=== PATIENT | male | born 1940 | race Caucasian/White ===

== ENCOUNTER 2020-06-20 07:30 | Inpatient (IN) | payer MEDICARE ==
[~2020-06-20] VITALS: Ht 177.8 cm; Wt 63.6 kg
[2020-06-20 08:58] LABS: HEMATOCRIT 46.4 % (42.0-54.0); HEMOGLOBIN 15.8 g/dL (13.5-17.5); MCH 30.6 pg (26.0-34.0); MCHC 34.1 g/dL (31.0-37.0); MCV 89.9 fL (80.0-100.0); MEAN PLATELET VOLUME 9.2 fL (7.4-10.4); RBC 5.16 10x6/uL (4.20-6.10); RDW 13.2 % (11.5-14.5)
[2020-06-20 09:07] LABS: APTT 30.1 SECONDS (22.8-39.4); INR 0.94 (0.85-1.17); PROTIME 12.5 SECONDS (11.6-15.0)
[2020-06-20 09:11] LABS: BILIRUBIN - TOTAL 0.27 mg/dL (0.2-1.3); POTASSIUM - SERUM 4.1 mmol/L (3.5-5.1); PROTEIN - SERUM 8.3 g/dL (6.4-8.2)
[2020-06-20] MEDS ORDERED: BAYER CHEWABLE81 MG PO (09:15)
[2020-06-20] MEDS ORDERED: NORVASC5 MG PO (09:16)
[2020-06-20 09:25] LABS: ALKALINE PHOSPHATASE 107 U/L (30-120); ALT (SGPT) 21 U/L (10-68); CALC OSMOLALITY 277 mosm/kg (275-300); CARBON DIOXIDE 28.8 mmol/L (21.0-32.0); CHLORIDE - SERUM 99 mmol/L (98-107); CREATININE - SERUM 0.9 mg/dL (0.6-1.3); GLUCOSE 125 mg/dL (74-106); SODIUM 136 mmol/L (136-145); UREA NITROGEN 27 mg/dL (7-18); eGFR NON AFRICAN AMERICAN 86 mL/min (90-120)
[2020-06-20 12:28] LABS: BILIRUBIN NEGATIVE (NEGATIVE); GLUCOSE NEGATIVE (NEGATIVE); KETONE NEGATIVE (NEGATIVE); NITRITE NEGATIVE (NEGATIVE); UROBILINOGEN NORMAL (NORMAL)
--- NOTE | 2020-06-24 10:52 | NUR ---
PT DECIDED TO LEAVE BECAUSE PROCEDURE WAS GOING TO BE LATER THIS AFTERNOON. PT RESCHEDULED FOR TOMMOROW. PT INSTRUCTED ON INSTRUCTIONS FOR SURGERY TOMMOROW. PT VERBALIZED UNDERSTANDING AND SENT HOME WITH DC INSTRUCTIONS. PT LEAVING OPS AT THIS TIME, AMBULATORY, NO DISTRESS NOTED.
[2020-06-25] VITALS (24 sets, daily range): BP systolic 96–203; BP diastolic 40–89; Ht 177.8 cm; Wt 63.6 kg
--- NOTE | 2020-06-25 17:45 | NUR ---
RECEIVED VIA BED FROM OR. RESTLESS AND AGITATED. PULLING AT HERNANDES CATHETER AND CENTRAL LINE. SOFT LIMB HOLDERS APPLIED UNTIL MORE ALERT. 02 VIA SIMPLE MASK AT 4L/M. LUNGS CLEAR. DIRECTOR OF PUBLIC SAFETY SINUS RHYTHM. CVP AND FLUIDS TO LEFT SUBCLAVIAN DUAL LUMEN CATHETER. IV FLUIDS/MEDS INFUSING. CLEVIPREX INITIATED FOR ELEVATED BP OF 168/73. TITRATED TO KEEP BP 140 SYSTOLIC. RIGHT CAROTID INCISION DRESSING INTACT. DOUG DRAIN COMPRESSED. RIGHT RADIAL ARTERIAL LINE CORRELATES WITH NIBP. HERNANDES CATHETER TO CLOSED SYSTEM DRAINAGE BAG, URINE CLEAR. SCDS AND MATT HOSE ON.
--- NOTE | 2020-06-25 18:30 | NUR ---
CLEVIPREX TITRATED OFF. BP 99/41. NTG DECREASED TO 8ML/HR.
--- NOTE | 2020-06-25 18:35 | NUR ---
C/O NAUSEA. ZOFRAN 4MG IVP GIVEN. NAUSEA RELIEVED.
--- NOTE | 2020-06-25 18:55 | NUR ---
NITRO DRIP TITRATED OFF. BP 115/44 VIA ART LINE. C/O DRY MOUTH, ASKING REPEATEDLY FOR WATER. GLYCERINE SWABS FOR COMFORT.
--- NOTE | 2020-06-25 19:20 | NUR ---
REPORT TO ON-COMING NURSE.
[2020-06-26] VITALS (56 sets, daily range): BP systolic 105–159; BP diastolic 44–99
--- NOTE | 2020-06-26 07:43 | OP ---
PATIENT NAME: REMA FUENTES JR MEDICAL RECORD: [id number] :40 [facility] AD[facility]ION DATE:06/25/20 SURGEON: TYLER NICHOLS MD DATE OF OPERATION: 06/25/2020 SURGEON: Tyler Nichols MD PROCEDURE PERFORMED: Right carotid endarterectomy. PREOPERATIVE DIAGNOSIS: Carotid stenosis. POSTOPERATIVE DIAGNOSIS: Carotid stenosis. ANESTHESIA: General endotracheal anesthesia. SPECIMENS: Plaque. CONDITION: Stable. DISPOSITION: CVICU. OPERATIVE FINDINGS: 1. Irregular plaque with some liquid-like plaque and the plaque feathered well distally, was tacked, and a CorMatrix patch was used for closure. 2. Neurologically intact to CVICU. INDICATION: Carotid stenosis, history of left hemispheric TIA. PROCEDURE IN DETAIL: The patient was brought to the operating suite. General anesthesia was obtained. The patient was prepped and draped. An oblique incision was made in the neck, taken down through the subcutaneous tissue. Facial venous branches were divided. Common carotid was encircled. External carotid and thyroid branch were encircled. Internal carotid was dissected out distally. Heparin was given. After heparin was circulated, backbleeding was controlled with a bulldog clamp and flow with a vascular clamp and backbleeding of the external carotid and thyroid branch with vessel loops. EEG and cerebral oximetry remained normal and after 2 minutes, arteriotomy was made, taken out through the region of dense and liquid calcification and plaque and into a relatively normal region of the internal carotid. The endarterectomy was begun by dividing the plaque in the common carotid with eversion endarterectomy of the external carotid and the plaque feathered well distally. Thorough irrigation was undertaken. All bits of loose debris were removed. The plaque was tacked distally. The patch was fashioned to the appropriate size and sutured along the edge of the arteriotomy. Prior to completing the anastomosis, backbleeding was allowed from all 3 major vessels. Thorough irrigation of the endarterectomy bed was performed and the anastomosis was completed. Flow restored first to the external carotid and then to the internal carotid. Interrupted patch sutures were used for hemostasis. A drain was placed through a separate stab wound. Thorough antibiotic irrigation was performed. A 3-layer neck closure was performed. Dermabond on the skin. Needle and sponge counts were correct. The patient was taken to ICU in stable condition. NTS:[id number] Voice Confirmation ID: [id number] DOCUMENT ID: [id number] OPERATIVE REPORT [id number] REMA FUENTES JR, DANIEL W MD at 0743 CC: GT GUTIERREZ [id number] DICTATION DATE: 06/25/20 174 RELATIONSHIP SPECIALIST: 06/26/20 0107 ADM IN [facility] [address] [place] [address]
--- NOTE | 2020-06-26 07:50 | NUR ---
DR. NICHOLS HERE. INSTRUCTED TO TITRATE CLEVIPREX AND NITROGLYCERINE DOWN ACCORDING TO CUFF BP.
--- NOTE | 2020-06-26 09:30 | NUR ---
C/O NAUSEA. ZOFRAN 4MG IVP GIVEN.
--- NOTE | 2020-06-26 10:10 | NUR ---
PATEINT STATES NAUSEA RELIEVED. CHAIR RECLINED FOR NAP.
--- NOTE | 2020-06-26 11:30 | NUR ---
PATIENT REMAINS UP IN CHAIR FOR LUNCH TRAY.
--- NOTE | 2020-06-26 13:00 | NUR ---
CHG BATH GIVEN. ASSISTED BACK TO BED. HOB AT 30 DEGREES.
--- NOTE | 2020-06-26 14:10 | NUR ---
DOUG DRAIN REMOVED FROM RIGHT NECK BY DR. NICHOLS. OCCLUSIVE DRESSING APPLIED. CVP MONITORING DISCONTINUED.
--- NOTE | 2020-06-26 15:10 | NUR ---
PATIENT IS SLEEPING AT THIS TIME. VITAL SIGNS ARE STABLE.
--- NOTE | 2020-06-26 17:00 | NUR ---
ARTERIAL CATHETER D/C'D FROM RIGHT RADIAL ARTERY. PRESSURE HELD AND OCCLUSIVE DRESSING APPLIED. HERNANDES CATHETER REMOVED AND URINAL PROVIDED. ASSISTED TO BEDSIDE CHAIR FOR SUPPER. SINUS RHYTHM.
[2020-06-26] MEDS ORDERED: LOPRESSOR25 MG PO (17:48)
[2020-06-27] VITALS (10 sets, daily range): BP systolic 118–145; BP diastolic 41–63
--- NOTE | 2020-06-27 10:26 | NUR ---
PT TAWANDA TOLENTINO ORDERED. HR 60'S TELEMETRY. STEADY GAIT. PT JOSE ANTONIO WELL.
--- NOTE | 2020-06-27 14:11 | MORECARE ---
CASE MANAGEMENT DISCHARGE SUMMARY PATIENT: REMA FUENTES UNIT: [id number] ADM DATE: 06/25/20 AGE: 80 : 40 SEX: M ROOM/BED: D[facility] AUTHOR: XOCHITL,DARIUSZ PHYSICIAN: REFERRING PHYSICIAN: SAPNA NICHOLS MD DATE OF SERVICE: 06/27/20 Discharge Plan Patient Name: REMA [facility]UENTES [facility] [facility] 1940 Planned Disposition: Home Anticipated Discharge Date: Discharge Date: 06/27/2020 Expected LOS: Initial Reviewer: [email or web address] Initial Review Date: 06/27/2020 Generated: 06/27/20 3:10 pm Comments DCP- Discharge Planning Updated by [email or web address]: Kylee Cheatham on 06/27/20 1:[address] Patient Name: REMA FUENTES Admission Status: Elective Accout number: [id number] Admission Date: 06-25-2020 : 1940 Admission Diagnosis:OCCLUSION AND STENOSIS OF RIGHT CAROTID ARTERY Attending: SAPNA NICHOLS Current LOS: 2 Anticipated DC Date: Planned Disposition: Home Primary Insurance: MEDICARE A & B Discharge Planning Comments: CM met with patient to complete initial dc planning assessment. CM educated patient on the CM role and verbal consent given by patient to complete assessment. Patient lives at home alone. Patient states that he has arranged for someone to come and check on him for the next week or so. Patient is independent. At discharge patient plans to return home and feels this is a safe discharge. CM discussed availability of home health, rehab services, and medical equipment. Patient will have family to transport home. Ty [phone] home and will be the person who will be checking on patient and assisting as needed. Patient denied known discharge needs at this time. CM will continue to follow and will assist as needed with dc plans/needs. Executive Associate: Kylee Cheatham DCPIA - Discharge Planning Initial Assessment Updated by [email or web address]: Kylee Cheatham on 06/27/20 2:07 pm * Is the patient Alert and Oriented? Yes * How many steps to enter\exit or inside your home? * PCP NO PCP * Pharmacy [facility] * Preadmission Environment Home Alone * ADLs Independent * Equipment None * List name and contact numbers for known caregivers / representatives who currently or will assist patient after discharge: TAMAR CRUZ - [phone] TY (TRANSPORTATION / CAREGIVER) [phone] * Verbal permission to speak to the caregivers and representatives has been obtained from the patient. No * Community resources currently utilized None * Additional services required to return to the preadmission environment? No * Can the patient safely return to the preadmission environment? Yes * Has this patient been hospitalized within the prior 30 days at any hospital? No Patient Name: REMA FUENTES Page 13848 at 1411 All edits/amendments must be made on the electronic document DICTATION DATE: 06/27/201409 ASSOCIATE PROFESSOR OF ART: UMER 06/27/201409 RPT#: [id number] DC DATE:06/27/20 STATUS: DIS IN [facility] [address] [place] [address] END OF REPORT
--- NOTE | 2020-06-27 14:18 | MORECARE ---
CASE MANAGEMENT DISCHARGE SUMMARY PATIENT: REMA FUENTES UNIT: [id number] ADM DATE: 06/25/20 AGE: 80 : 40 SEX: M ROOM/BED: D.[facility] AUTHOR: XOCHITL,DARIUSZ PHYSICIAN: REFERRING PHYSICIAN: SAPNA NICHOLS MD DATE OF SERVICE: 06/27/20 Discharge Plan Patient Name: REMA FUENTES [facility] [facility] 1940 Planned Disposition: Home Anticipated Discharge Date: Discharge Date: 06/27/2020 Expected LOS: Initial Reviewer: [email or web address] Initial Review Date: 06/27/2020 Generated: 06/27/20 3:18 pm Comments DCP- Discharge Planning Updated by [email or web address]: Kylee Cheatham on 06/27/20 1:[address] Patient Name: REMA FUENTES Admission Status: Elective Accout number: [id number] Admission Date: 06-25-2020 : 1940 Admission Diagnosis:OCCLUSION AND STENOSIS OF RIGHT CAROTID ARTERY Attending: SAPNA NICHOLS Current LOS: 2 Anticipated DC Date: Planned Disposition: Home Primary Insurance: MEDICARE A & B Discharge Planning Comments: CM met with patient to complete initial dc planning assessment. CM educated patient on the CM role and verbal consent given by patient to complete assessment. Patient lives at home alone. Patient states that he has arranged for someone to come and check on him for the next week or so. Patient is independent. At discharge patient plans to return home and feels this is a safe discharge. CM discussed availability of home health, rehab services, and medical equipment. Patient will have family to transport home. Ty [phone] him home and will be the person who will be checking on patient and assisting as needed. Patient denied known discharge needs at this time. CM will continue to follow and will assist as needed with dc plans/needs. Land Leasing Information Clerk: Kylee Cheatham DCPIA - Discharge Planning Initial Assessment Updated by [email or web address]: Kylee Cheatham on 06/27/20 2:07 pm * Is the patient Alert and Oriented? Yes * How many steps to enter\exit or inside your home? * PCP NO PCP * Pharmacy [facility] * Preadmission Environment Home Alone * ADLs Independent * Equipment None * List name and contact numbers for known caregivers / representatives who currently or will assist patient after discharge: TAMARBRIGITTE CRUZ - [phone] TY (TRANSPORTATION / CAREGIVER) [phone] * Verbal permission to speak to the caregivers and representatives has been obtained from the patient. No * Community resources currently utilized None * Additional services required to return to the preadmission environment? No * Can the patient safely return to the preadmission environment? Yes * Has this patient been hospitalized within the prior 30 days at any hospital? No Last DP export: 06/27/20 1:11 p Patient Name: REMA FUENTES Page 32737 at 1418 All edits/amendments must be made on the electronic document DICTATION DATE: 06/27/201417 CORPORATE CONTROLLER: UMER 06/27/201417 RPT#: [id number] DC DATE:06/27/20 STATUS: DIS IN [facility] [address] [place] [address] END OF REPORT
== END 2020-06-27 13:31 | disposition home or self-care (01) | DRG 39 ==
LOC: D.SDCHOLD 06-24 07:30 → D.CVICU 06-25 18:28
PROVIDERS: ADMIT Thoracic Surgery (Cardiothoracic Vascular Surgery); ATTEND Thoracic Surgery (Cardiothoracic Vascular Surgery)
PROC: 03UK0JZ Supplement Right Internal Carotid Artery with Synthetic Substitute, Open Approach (ICD-10-PCS; 2020-06-25)
PROC: 03CK0ZZ Extirpation of Matter from Right Internal Carotid Artery, Open Approach (ICD-10-PCS; principal; 2020-06-25 07:30)
DX: I65.21 Occlusion and stenosis of right carotid artery (principal)

== ENCOUNTER 2021-01-13 00:01 | Observation (INO) | payer MEDICARE, MEDICAID ==
[~2021-01-13] VITALS: Ht 177.8 cm; Wt 65.1 kg
[~2021-01-13 00:01] MED LIST: BAYER CHEWABLE81 MG PO; K-TAB10 MEQ PO; LOPRESSOR25 MG PO; NORVASC5 MG PO; PERCOCET 5-3251 TAB PO; PLAVIX75 MG PO
[2021-01-13 00:24] VITALS: BP 196/95
[2021-01-13 00:42] LABS: BASOPHILS 0.1 % (0-2); EOSINOPHILS 0.9 % (0-7); HEMATOCRIT 34.4 % (42.0-54.0); IMMATURE GRANULOCYTES 0.4 % (0-5); LYMPHOCYTE ABS# 1.74 10x3/uL (1.32-3.57); LYMPHOCYTES 12.3 % (15-50); MCH 28.9 pg (26.0-34.0); MCV 90.5 fL (80.0-100.0); MEAN PLATELET VOLUME 9.2 fL (7.4-10.4); MONOCYTES 8.3 % (2-11); NEUTROPHIL ABS# 10.99 10x3/uL (1.78-5.38); RDW 14.3 % (11.5-14.5)
[2021-01-13 00:46] LABS: PLATELET COUNT 333 10x3/uL (130-400); WBC 14.1 10x3/uL (4.8-10.8)
[2021-01-13 00:50] LABS: APTT 27.1 SECONDS (22.8-39.4)
[2021-01-13 00:51] LABS: INR 1.18 (0.85-1.17); PROTIME 13.9 SECONDS (11.6-15.0)
[2021-01-13 00:54] LABS: CALC OSMOLALITY 282 mosm/kg (275-300); CALCIUM 8.3 mg/dL (8.5-10.1); CARBON DIOXIDE 27.1 mmol/L (21.0-32.0); CHLORIDE - SERUM 104 mmol/L (98-107); CREATININE - SERUM 0.9 mg/dL (0.6-1.3); GLUCOSE 128 mg/dL (74-106); SODIUM 140 mmol/L (136-145); UREA NITROGEN 18 mg/dL (7-18); eGFR NON AFRICAN AMERICAN 86 mL/min (90-120)
[2021-01-13 00:55] LABS: POTASSIUM - SERUM 4.3 mmol/L (3.5-5.1)
[2021-01-13 01:12] LABS: ALKALINE PHOSPHATASE 73 U/L (30-120); ALT (SGPT) 35 U/L (10-68); BILIRUBIN - TOTAL 0.98 mg/dL (0.2-1.3); CKMB 2.8 U/L (0.0-3.6); CREATINE KINASE 226 UL (21-232); MAGNESIUM - SERUM 1.9 mg/dL (1.8-2.4); PROTEIN - SERUM 6.7 g/dL (6.4-8.2)
[2021-01-13 01:16] LABS: D-DIMER-QUANTITATIVE 3.57 ug/mLFEU (0.20-0.54); TROPONIN-I 0.557 ng/mL (0.000-0.060)
--- NOTE | 2021-01-13 02:16 | NUR ---
NURSE ATTEMPTED TO CALL REPORT. NURSE SPOKE TO RICHARD, WAS ADVISED THAT RECIEVING NURSE IS AT BREAK AND CANNOT TAKE REPORT. NURSE ADVISED TO CALL BACK WITH REPORT
--- NOTE | 2021-01-13 02:50 | NUR ---
CALLED ER TO RECIEVE REPORT, INFORMED THAT PTS NURSE IS ON LUNCH BREAK AND WILL CALL WHEN THEY GET BACK.
[2021-01-13 02:57] VITALS: BP 150/70
--- NOTE | 2021-01-13 02:58 | NUR ---
nurse spoke with Val, provided patient handoff report
--- NOTE | 2021-01-13 03:20 | NUR ---
RECIEVED TO ROOM 2126 FROM ER VIA [employer]. PT A&O. VITALS STABLE. MID STERNAL INCISION WITH SMALL DRSG TO BASE OF INCISION WITH PURULENT DRAINAGE NOTED, 2 SMALLER INCISIONS NOTED TO RIGHT LOWER LEG, MATT HOSE TO BILATERAL LOWER EXTREMITIES. PLACED ON TELEMERTY, 98 SR. FRESH ICE WATER GIVEN AT PT REQUEST, NO OTHER NEEDS EXPRESSED AT THIS TIME, BED LOW, CL IN REACH.
[2021-01-13 03:21] LABS: BASOPHILS 0.1 % (0-2); EOSINOPHILS 0.3 % (0-7); HEMATOCRIT 31.5 % (42.0-54.0); HEMOGLOBIN 10.1 g/dL (13.5-17.5); IMMATURE GRANULOCYTES 0.3 % (0-5); MCHC 32.1 g/dL (31.0-37.0); MCV 90.5 fL (80.0-100.0); MEAN PLATELET VOLUME 8.9 fL (7.4-10.4); MONOCYTES 8.1 % (2-11); NEUTROPHIL ABS# 10.95 10x3/uL (1.78-5.38); NEUTROPHILS 80.2 % (40-80); PLATELET COUNT 292 10x3/uL (130-400); RBC 3.48 10x6/uL (4.20-6.10); RDW 14.3 % (11.5-14.5); WBC 13.7 10x3/uL (4.8-10.8)
[2021-01-13 03:27] LABS: INR 1.22 (0.85-1.17); PROTIME 14.2 SECONDS (11.6-15.0)
[2021-01-13 03:44] LABS: CKMB 2.8 U/L (0.0-3.6); CREATINE KINASE 178 UL (21-232)
[2021-01-13 04:06] LABS: ALBUMIN 2.5 g/dL (3.4-5.0); ALKALINE PHOSPHATASE 63 U/L (30-120); ALT (SGPT) 33 U/L (10-68); BILIRUBIN - TOTAL 0.77 mg/dL (0.2-1.3); CALC OSMOLALITY 279 mosm/kg (275-300); CALCIUM 7.8 mg/dL (8.5-10.1); CARBON DIOXIDE 26.2 mmol/L (21.0-32.0); CHLORIDE - SERUM 105 mmol/L (98-107); CREATININE - SERUM 0.8 mg/dL (0.6-1.3); GLUCOSE 102 mg/dL (74-106); MAGNESIUM - SERUM 1.9 mg/dL (1.8-2.4); POTASSIUM - SERUM 4.1 mmol/L (3.5-5.1); PRO BNP 2246 pg/mL (0-450); PROTEIN - SERUM 5.8 g/dL (6.4-8.2); SODIUM 139 mmol/L (136-145); UREA NITROGEN 17 mg/dL (7-18); eGFR NON AFRICAN AMERICAN > 90 mL/min (90-120)
[2021-01-13 04:08] VITALS: Ht 177.8 cm; Wt 65.1 kg
--- NOTE | 2021-01-13 08:04 | NUR ---
PT UP ON SIDE OF BED WITH O2 NC AT 2 L, NO S/S OF DISTRESS SEEN OR VOICED AT THIS TIME. WILL CONTINUE WITH CARE PLAN AND SAFETY PRECAUTIONS.
[2021-01-13 08:22] VITALS: BP 175/81
[2021-01-13 10:32] LABS: BILIRUBIN NEGATIVE (NEGATIVE); KETONE MODERATE mg/dL (NEGATIVE); NITRITE NEGATIVE (NEGATIVE); UROBILINOGEN NORMAL mg/dL (< 2)
[2021-01-13 10:33] LABS: BACTERIA FEW HPF (NONE SEEN); SQUAMOUS EPITHELIAL RARE HPF (0-4); WHITE CELLS - URINE OCC HPF (0-1)
[2021-01-13 11:23] VITALS: BP 134/71
[2021-01-13] MEDS ORDERED: FEXOFENADINE HC60 MG PO (13:38)
[2021-01-13] MEDS ORDERED: LASIX40 MG PO (13:38)
[2021-01-13] MEDS ORDERED: XOPENEX HFA15 GM INH (13:38)
[2021-01-13] MEDS ORDERED: PROTONIX40 MG PO (13:39)
[2021-01-13] MEDS ORDERED: TESSALON PERLE100 MG PO (13:39)
[2021-01-13] MEDS ORDERED: MUCINEX600 MG PO (13:39)
--- NOTE | 2021-01-13 14:51 | NUR ---
I have reviewed this patient and I concur with the Shift Assessment completed by the Licensed Practical Nurse today this shift.
--- NOTE | 2021-01-13 15:11 | NUR ---
PT NOTIFIED OF DISCHARGE AND TO NOTIFY FAMILY FOR P/U. PT INSTRUCTED ON DICHARGE INSTRUCTIONS AND PROVIDER FOLLOW-UP APPT DATES/TIMES, PT NOTIFIED OF OXYGEN TO USE AT HOME WHEN NEEDED. PT NOTIFIED MEDICATION WAS E-SCRIBED TO PREFERRED PHARMACY PER PROVIDER. ALL QUESTIONS AND CONCERNS WE'RE DISCUSSED AT THIS TIME, ADVISED TO CALL IF ANY OTHER QUESTIONS/CONCERNS ARISE. PT TO CONTINUE CARDIAC REHAB PRIORLY INSTRUCTED. IV'S TO RIGHT HAND AND RIGHT FOREARM REMOVED WITHOUT DIFFICULTY. TELEMETRY WAS REMOVED WITHOUT ISSUES.
[2021-01-13] MEDS ORDERED: BREO ELLIPTA 11 EACH INH (15:16)
[2021-01-13] MEDS ORDERED: ASCORBIC ACID500 MG PO (15:16)
--- NOTE | 2021-01-14 23:42 | MORECARE ---
CASE MANAGEMENT DISCHARGE SUMMARY PATIENT: REMA FUENTES JR UNIT: [id number] ADM DATE: 01/13/21 AGE: 80 : 40 SEX: M ROOM/BED: D.6491 AUTHOR: DARIUSZ LEUNG PHYSICIAN: REFERRING PHYSICIAN: GHAZALA ROBERTS MD DATE OF SERVICE: 01/14/21 Discharge Plan Patient Name: REMA FUENTES [facility] [facility] 1940 Planned Disposition: Home Anticipated Discharge Date: Discharge Date: 01/13/2021 Expected LOS: Initial Reviewer: [email or web address] Initial Review Date: 01/13/2021 Generated: 01/15/21 12:41 am External Providers External Provider: Carlos Next Contact Date: Service Request Date: Service Type: Resolution: Reviewer: Comments: Patient Name: ERMA FUENTES Page [phone] at 2342 All edits/amendments must be made on the electronic document DICTATION DATE: 01/14/21 234 IT NETWORK ADMINISTRATOR: UMER 01/14/21 234 RPT#: [id number] DC DATE:01/13/21 STATUS: DIS IN [facility] [address] [place] [address] END OF REPORT
--- NOTE | 2021-01-14 23:55 | MORECARE ---
CASE MANAGEMENT DISCHARGE SUMMARY PATIENT: REMA FUENTES JR UNIT: [id number] ADM DATE: 01/13/21 AGE: 80 : 40 SEX: M ROOM/BED: D.8317 AUTHOR: DARIUSZ LEUNG PHYSICIAN: REFERRING PHYSICIAN: GHAZALA ROBERTS MD DATE OF SERVICE: 01/14/21 Discharge Plan Patient Name: REMA FUENTES [facility] [facility] 1940 Planned Disposition: Home Anticipated Discharge Date: Discharge Date: 01/13/2021 Expected LOS: Initial Reviewer: [email or web address] Initial Review Date: 01/13/2021 Generated: 01/15/21 12:54 am Coverage Notice Reviewer: [email or web address] Tereza Cheatham Notice Issued Date-Time: 01/13/2021 13:10 Notice Type: Patient Choice Letter Notice Delivered To: Patient Relationship to Patient: Self Day Worker Name: Delivery Method: HAND - Hand Delivered Kandi Days: Prior Verbal Notification: Yes Recipient Understood Notice: Yes Recipient Signature: Med Rec Note Co-signed by Attending: Coverage Notice Comment: Kirstin Zapata DP export: 01/14/21 10:42 pm Patient Name: REMA FUENTES Page 03582 at 2355 All edits/amendments must be made on the electronic document DICTATION DATE: 01/14/212354 BOTTLING LINE OPERATOR: UMER 01/14/211 RPT#: [id number] DC DATE:01/13/21 STATUS: DIS IN [facility] [address] [place] [address] END OF REPORT
== END 2021-01-13 15:50 | disposition home or self-care (01) ==
LOC: D.ER 00:01 → D.M2 01:45 → D.EDHOLD 01:45 → D.M2 01:45 → OBSVTIME 13:20 → D.M2 15:50
PROVIDERS: Family Medicine; ADMIT Emergency Medicine; ATTEND Emergency Medicine
DX: U07.1 COVID-19 (principal); D64.9 Anemia, unspecified; I10 Essential (primary) hypertension; Z95.1 Presence of aortocoronary bypass graft; R07.9 Chest pain, unspecified; J98.11 Atelectasis; J90 Pleural effusion, not elsewhere classified; F41.9 Anxiety disorder, unspecified

== ENCOUNTER → 2021-01-22 10:29 | Outpatient (CLI) | payer MEDICARE ==
[2021-01-13 04:08] VITALS: BMI 20.6
[~2021-01-22 10:29] MED LIST changes: +ASCORBIC ACID500 MG PO; +BREO ELLIPTA 11 EACH INH; +FEXOFENADINE HC60 MG PO; +LASIX40 MG PO; +MUCINEX600 MG PO; +PROTONIX40 MG PO; +TESSALON PERLE100 MG PO; +XOPENEX HFA15 GM INH
== END | disposition home or self-care (01) ==
LOC: D.RAD 10:29
PROVIDERS: ATTEND Thoracic Surgery (Cardiothoracic Vascular Surgery)
DX: Z95.1 Presence of aortocoronary bypass graft (principal); R06.02 Shortness of breath

== ENCOUNTER → 2021-02-04 09:00 | Outpatient (CLI) | payer MEDICARE ==
[2021-01-13 04:08] VITALS: BMI 20.6
[2021-02-04 09:24] LABS: BASOPHILS 0.6 % (0-2); EOSINOPHILS 4.3 % (0-7); HEMATOCRIT 38.5 % (42.0-54.0); HEMOGLOBIN 12.4 g/dL (13.5-17.5); IMMATURE GRANULOCYTES 0.3 % (0-5); LYMPHOCYTE ABS# 2.15 10x3/uL (1.32-3.57); LYMPHOCYTES 19.8 % (15-50); MCH 28.9 pg (26.0-34.0); MCHC 32.2 g/dL (31.0-37.0); MCV 89.7 fL (80.0-100.0); MEAN PLATELET VOLUME 8.4 fL (7.4-10.4); MONOCYTES 5.9 % (2-11); NEUTROPHIL ABS# 7.52 10x3/uL (1.78-5.38); NEUTROPHILS 69.1 % (40-80); RBC 4.29 10x6/uL (4.20-6.10); RDW 14.5 % (11.5-14.5); WBC 10.9 10x3/uL (4.8-10.8)
[2021-02-04 09:47] LABS: ALBUMIN 3.3 g/dL (3.4-5.0); ALKALINE PHOSPHATASE 125 U/L (30-120); ALT (SGPT) 18 U/L (10-68); BILIRUBIN - TOTAL 0.25 mg/dL (0.2-1.3); CALC OSMOLALITY 280 mosm/kg (275-300); CALCIUM 8.8 mg/dL (8.5-10.1); CARBON DIOXIDE 29.9 mmol/L (21.0-32.0); CHLORIDE - SERUM 101 mmol/L (98-107); CREATININE - SERUM 0.8 mg/dL (0.6-1.3); GLUCOSE 134 mg/dL (74-106); POTASSIUM - SERUM 3.9 mmol/L (3.5-5.1); PROTEIN - SERUM 7.6 g/dL (6.4-8.2); SODIUM 139 mmol/L (136-145); UREA NITROGEN 16 mg/dL (7-18); eGFR NON AFRICAN AMERICAN > 90 mL/min (90-120)
[2021-02-04 09:48] LABS: PLATELET COUNT 366 10x3/uL (130-400)
== END | disposition home or self-care (01) ==
LOC: D.LAB 09:00
PROVIDERS: ATTEND Thoracic Surgery (Cardiothoracic Vascular Surgery)
DX: R06.02 Shortness of breath (principal); Z95.1 Presence of aortocoronary bypass graft